=== PATIENT | female | born 1975 | race Caucasian/White ===

== ENCOUNTER → 2020-12-07 06:24 | Outpatient (CLI) | payer OTHER, MEDICAID, SELFPAY ==
--- NOTE | 2020-12-07 | DI.MRI.S_ITS ---
PROCEDURE: MR LUMBAR SPINE WO CON COMPARISON: [facility], MR, MR LUMBAR SPINE WITHOUT CONTRAST, 11/19/2017, 13:07. INDICATIONS: Radiculopathy, lumbar region FINDINGS: CONUS MEDULLARIS: Conus terminates normally at L1-2. The distal cord, conus, and cauda equina have normal signal. PARASPINAL AREA: There is no paraspinal soft tissue mass or fluid collection. The visualized kidneys and adrenal glands are grossly normal. The aorta has a normal caliber. BONES: A transitional anatomy is noted with sacralization of L5 and a rudimentary L5-S1 disc. No abnormal marrow signal. Vertebral body heights are maintained. LUMBAR DISC LEVELS: L1-L2: There is no significant disc bulge. The foramina and central canal are patent. L2-L3: Disc space narrowing and a diffuse disc bulge with disc osteophytes cause moderate bilateral foraminal stenosis. The central canal has mild stenosis. L3-L4: Diffuse disc bulge and facet hypertrophy cause mild bilateral foraminal stenosis. The central canal is patent. L4-L5: Diffuse disc bulge causes mild bilateral foraminal stenosis. The central canal is patent. L5-S1: A rudimentary disc is seen. No foraminal or central canal stenosis. IMPRESSION: 1. Multilevel degenerative disc disease, most severe at L2-3 with disc space narrowing and mild central canal stenosis at this level. 2. Moderate foraminal stenosis at L2-3, L3-4, and L4-5 bilaterally. 3. Overall there is no significant interval change compared to the prior MRI on 11/13/2017. Dictated by: Isma Galaviz M.D. on 12/08/2020 at 8:24 Approved by: Isma Galaviz M.D. on 12/08/2020 at 8:32
== END ==
PROVIDERS: Referring Provider Nurse Practitioner Family; Visit Provider Nurse Practitioner Family
DX: M51.16 Intervertebral disc disorders with radiculopathy, lumbar region (principal); M48.061 Spinal stenosis, lumbar region without neurogenic claudication
CPT/HCPCS: 72148